=== PATIENT | female | born 1965 | race Hispanic/Latino ===

== ENCOUNTER 2017-08-13 18:59 | Emergency (ER) | payer SELFPAY | END 2017-08-13 19:40 | disposition home or self-care (01) | LOC: ERS 18:59 | DX: N63.0 Unspecified lump in unspecified breast (principal); E11.9 Type 2 diabetes mellitus without complications; I10 Essential (primary) hypertension; Z79.899 Other long term (current) drug therapy | CPT/HCPCS: 99283 ==

== ENCOUNTER 2019-04-25 08:41 | Emergency (ER) | payer SELFPAY | END 2019-04-25 10:04 | disposition home or self-care (01) | LOC: ERS 08:41 | DX: K59.00 Constipation, unspecified (principal); I10 Essential (primary) hypertension; Z79.891 Long term (current) use of opiate analgesic; Z79.899 Other long term (current) drug therapy | CPT/HCPCS: 99283 ==